=== PATIENT | female | born 1985 | race American Indian/Alaskan Native ===

== ENCOUNTER 2018-08-10 09:30 | Emergency (ER) | payer OTHER, BC ==
[~2018-08-10] VITALS: Ht 165.1 cm; Wt 93.0 kg
[~2018-08-10 09:30] MED LIST: IBUPROFEN800 MG PO; PERCOCET 5-3251 EACH PO; PRENATAL TABLE1 EAC1 PO; PROMETHAZINE HC25 M1 PO
[2018-08-10] MEDS ORDERED: WELLBUTRIN SR150 MG PO (09:42)
[2018-08-10] MEDS ORDERED: NALTREXONE HCL50 MG PO (09:42)
== END 2018-08-10 10:36 | disposition home or self-care (01) ==
LOC: ED 09:30
DX: Z77.21 Contact with and (suspected) exposure to potentially hazardous body fluids (principal); F17.200 Nicotine dependence, unspecified, uncomplicated; Z79.899 Other long term (current) drug therapy
CPT/HCPCS: 36415; 84460; 86703; 86707; 86803; 87350; 99283